=== PATIENT | female | born 1970 | race Caucasian/White ===

== ENCOUNTER 2020-07-12 19:28 | Emergency (ER) | payer OTHER | END 2020-07-12 20:18 | disposition admitted as inpatient to this hospital (09) | LOC: ER1 19:28 | DX: Z53.21 Procedure and treatment not carried out due to patient leaving prior to being seen by health care provider (principal) ==

== ENCOUNTER 2020-10-24 17:34 | Observation (INO) | payer OTHER ==
[~2020-10-24] VITALS: Ht 167.6 cm; Wt 100.2 kg
[~2020-10-24 17:34] MED LIST changes: -COMBIVENT RESPIM4 GM NEB; -IBU800 MG PO; -K-DUR TAB 20 M20 MEQ PO; -LASIX20 MG PO; -LISINOPRIL5 MG PO; -LOPRESSOR 25 MG25 MG PO; -NEURONTIN400 MG PO; -PAXIL30 MG PO; -PREDNISONE10 MG PO; -VENTOLIN HFA 66.7 GM INH; -ZESTORETIC 20-1 EAC1 PO
[2020-10-24 18:43] LABS: HEMOGLOBIN 14.3 gm/dl (12.3-15.3); RED BLOOD COUNT 4.74 M/UL (4.00-5.10)
[2020-10-24 19:05] LABS: BUN/CREATININE RATIO 22 (0-10)
[2020-10-25 03:31] LABS: HEMOGLOBIN 13.4 gm/dl (12.3-15.3); RED BLOOD COUNT 4.42 M/UL (4.00-5.10); WHITE BLOOD COUNT 9.7 K/UL (4.5-11.0)
[2020-10-25] MEDS ORDERED: PAXIL30 MG PO (09:10)
[2020-10-25] MEDS ORDERED: COMBIVENT RESPIM4 GM NEB (09:10)
[2020-10-25] MEDS ORDERED: PREDNISONE10 MG PO (09:13)
[2020-10-25] MEDS ORDERED: VENTOLIN HFA 66.7 GM INH (09:17)
[2020-10-25] MEDS ORDERED: IBU800 MG PO (09:18)
[2020-10-25] MEDS ORDERED: ZESTORETIC 20-1 EAC1 PO (09:18)
[2020-10-25] MEDS ORDERED: NEURONTIN400 MG PO (09:20)
[2020-10-26 03:07] LABS: HEMOGLOBIN 13.8 gm/dl (12.3-15.3); RED BLOOD COUNT 4.53 M/UL (4.00-5.10); WHITE BLOOD COUNT 9.1 K/UL (4.5-11.0)
[2020-10-26] MEDS ORDERED: LOPRESSOR 25 MG25 MG PO (17:03)
[2020-10-26] MEDS ORDERED: LISINOPRIL5 MG PO (17:03)
[2020-10-26] MEDS ORDERED: K-DUR TAB 20 M20 MEQ PO (17:03)
[2020-10-26] MEDS ORDERED: LASIX20 MG PO (17:03)
== END 2020-10-26 20:05 | disposition home or self-care (01) ==
LOC: ER1 17:34 → CDU 20:32 → PROG CARE 20:32
PROVIDERS: Emergency Medicine; Internal Medicine; Physician Assistant; ADMIT Internal Medicine
PROC: 4A023FZ Measurement of Cardiac Rhythm, Percutaneous Approach (ICD-10-PCS; principal; 2020-10-25)
PROC: 4A0234Z Measurement of Cardiac Electrical Activity, Percutaneous Approach (ICD-10-PCS; principal; 2020-10-25)
PROC: 02K83ZZ Map Conduction Mechanism, Percutaneous Approach (ICD-10-PCS; principal; 2020-10-25)
DX: I48.92 Unspecified atrial flutter (principal); I95.9 Hypotension, unspecified; I11.0 Hypertensive heart disease with heart failure; I50.21 Acute systolic (congestive) heart failure; N17.9 Acute kidney failure, unspecified; T50.905A Adverse effect of unspecified drugs, medicaments and biological substances, initial encounter; N14.2 Nephropathy induced by unspecified drug, medicament or biological substance; I42.0 Dilated cardiomyopathy; E87.6 Hypokalemia; G25.81 Restless legs syndrome; R94.5 Abnormal results of liver function studies; F17.210 Nicotine dependence, cigarettes, uncomplicated; I08.1 Rheumatic disorders of both mitral and tricuspid valves; E66.9 Obesity, unspecified; Z68.35 Body mass index [BMI] 35.0-35.9, adult; Z20.822 Contact with and (suspected) exposure to COVID-19; Z79.52 Long term (current) use of systemic steroids; Z79.899 Other long term (current) drug therapy
CPT/HCPCS: ECHO; 36415; 71045; 71046; 80048; 80053; 80061; 82550; 82553; 82962; 83735; 83874; 83880; 84439; 84443; 84484; 85025; 85379; 85610; 85730; 93005; 93306; 93609; 93620; 93621; 94640; 94664; 94760; 96374; 99152; 99153; 99285; C1730; C1733; C1766; G0378; J0153; J1644; J1650; J2250; J3010; J7030; J7040; Q9957; Q9967; U0002

== ENCOUNTER → 2020-10-24 | Outpatient (CLI) | payer OTHER ==
[~2020-10-24] MED LIST: COMBIVENT RESPIM4 GM NEB; DOXYCYCLINE HY100 MG PO; IBU800 MG PO; K-DUR TAB 20 M20 MEQ PO; LASIX20 MG PO; LISINOPRIL5 MG PO; LOPRESSOR 25 MG25 MG PO; NEURONTIN400 MG PO; PAXIL30 MG PO; PREDNISONE10 MG PO; VENTOLIN HFA 66.7 GM INH; ZESTORETIC 20-1 EAC1 PO
== END ==
LOC: KOH-I 10:50
DX: R06.02 Shortness of breath (principal)
CPT/HCPCS: 71046; Q9967

== ENCOUNTER 2020-11-26 08:41 | Inpatient (IN) | payer OTHER ==
[~2020-11-26] VITALS: Ht 167.6 cm; Wt 96.6 kg
[~2020-11-26 08:41] MED LIST changes: +BUSPIRONE HCL5 MG PO; +IBU800 MG PO; +K-DUR TAB 20 M20 MEQ PO; +LASIX20 MG PO; +LISINOPRIL5 MG PO; +LOPRESSOR 25 MG25 MG PO; +NEURONTIN400 MG PO; +PAXIL30 MG PO; +PREDNISONE10 MG PO; +VENTOLIN HFA 66.7 GM INH; +ZESTORETIC 20-1 EAC1 PO
[2020-11-26] MEDS ORDERED: IPRAT-ALBUT 0.5-3 ML NEB (09:10)
[2020-11-26 09:27] LABS: HEMOGLOBIN 14.8 gm/dl (12.3-15.3); RED BLOOD COUNT 4.61 M/UL (4.00-5.10); WHITE BLOOD COUNT 6.3 K/UL (4.5-11.0)
[2020-11-26] MEDS ORDERED: LISINOPRIL5 MG PO (11:24)
[2020-11-26] MEDS ORDERED: K-TAB ER20 MEQ PO (11:25)
[2020-11-26] MEDS ORDERED: BUMETANIDE1 MG PO (11:26)
[2020-11-27 03:12] LABS: HEMOGLOBIN 15.8 gm/dl (12.3-15.3); RED BLOOD COUNT 5.01 M/UL (4.00-5.10); WHITE BLOOD COUNT 7.7 K/UL (4.5-11.0)
[2020-11-28 02:37] LABS: HEMOGLOBIN 14.7 gm/dl (12.3-15.3); RED BLOOD COUNT 4.66 M/UL (4.00-5.10); WHITE BLOOD COUNT 5.8 K/UL (4.5-11.0)
[2020-11-28 02:55] LABS: BUN/CREATININE RATIO 23 (0-10)
[2020-11-29 03:08] LABS: HEMOGLOBIN 16.4 gm/dl (12.3-15.3); WHITE BLOOD COUNT 6.4 K/UL (4.5-11.0)
[2020-11-29 03:13] LABS: RED BLOOD COUNT 5.15 M/UL (4.00-5.10)
[2020-11-29 03:30] LABS: BUN/CREATININE RATIO 16 (0-10)
--- NOTE | 2020-11-29 16:44 | NUR ---
11/29/20 1650 PATIENT RETURNED FROM [employer]. HEART CATH "CLEAN" DIAGNOSTIC ONLY, TR BAND IN PLACE TO RIGHT WRIST WITH 13ML AIR. POSITIVE PULSES NOTED, CAP REFULL LESS THAN 3 SECONDS. EXTREM WARM TO TOUCH, DENIES PAIN/DISCOMFORT. DENIES NUMBNESS, TINGLING. PATIENT ALERT/ORIENTED, EDUCATED ON NOT USING RIGHT ARM/HAND UNTIL TR BAND REMOVED AND CLEARED FOR D/C. EXPLAINED RISKS OF BLEEDING ETC. PATIENT VERBALIZED UNDERSTANDING.
[2020-11-29] MEDS ORDERED: METOPROLOL SUC100 MG PO (16:53)
[2020-11-29] MEDS ORDERED: DIGOXIN125 MCG PO (16:53)
[2020-11-29] MEDS ORDERED: ASPIRIN EC81 MG PO (16:53)
[2020-11-29] MEDS ORDERED: ATORVASTATIN CA20 MG PO (16:53)
[2020-11-29] MEDS ORDERED: BUDESONIDE0.5 MG/2 M NEB (16:53)
[2020-11-29] MEDS ORDERED: ELIQUIS 5 MG TAB5 MG PO (16:53)
[2020-11-29] MEDS ORDERED: LASIX20 MG PO (16:56)
[2020-11-29] MEDS ORDERED: KLOR-CON 1010 MEQ PO (16:56)
[2020-11-29] MEDS ORDERED: ALDACTONE 25MG25 MG PO (16:56)
[2020-11-29] MEDS ORDERED: BUMETANIDE1 MG PO (20:11)
== END 2020-11-29 20:00 | disposition home or self-care (01) | DRG 286 ==
LOC: ER1 08:41 → CDU 10:34 → PROG CARE 10:34
PROVIDERS: Student in an Organized Health Care Education/Training Program; ADMIT Internal Medicine
PROC: B2111ZZ Fluoroscopy of Multiple Coronary Arteries using Low Osmolar Contrast (ICD-10-PCS; principal; 2020-11-29)
DX: I11.0 Hypertensive heart disease with heart failure (principal); I50.23 Acute on chronic systolic (congestive) heart failure; I48.19 Other persistent atrial fibrillation; I48.92 Unspecified atrial flutter; I42.0 Dilated cardiomyopathy; E87.6 Hypokalemia; Z20.822 Contact with and (suspected) exposure to COVID-19; F17.210 Nicotine dependence, cigarettes, uncomplicated; I34.0 Nonrheumatic mitral (valve) insufficiency; F41.9 Anxiety disorder, unspecified; J44.9 Chronic obstructive pulmonary disease, unspecified; F12.90 Cannabis use, unspecified, uncomplicated; Z82.49 Family history of ischemic heart disease and other diseases of the circulatory system; Z79.52 Long term (current) use of systemic steroids; Z79.01 Long term (current) use of anticoagulants; Z80.42 Family history of malignant neoplasm of prostate
CPT/HCPCS: 36415; 71045; 78452; 80053; 82550; 82553; 83735; 83874; 83880; 84132; 84439; 84443; 84484; 85025; 85027; 85610; 93005; 93017; 94640; 94760; 96372; 96374; 96375; 96376; 99152; 99153; 99285; A9502; C1769; C1894; G0378; J0360; J1160; J1644; J1650; J2250; J2785; J3010; Q9967; U0002

== ENCOUNTER → 2021-05-08 | Outpatient (CLI) | payer OTHER ==
[~2021-05-08] MED LIST changes: +ALDACTONE 25MG25 MG PO; +ASPIRIN EC81 MG PO; +ATORVASTATIN CA20 MG PO; +BUDESONIDE0.5 MG/2 M NEB; +BUMETANIDE1 MG PO; +DIGOXIN125 MCG PO; +ELIQUIS 5 MG TAB5 MG PO; +IPRAT-ALBUT 0.5-3 ML NEB; +K-TAB ER20 MEQ PO; +KLOR-CON 1010 MEQ PO; +METOPROLOL SUC100 MG PO
== END ==
LOC: HEART 5 15:00
DX: I42.9 Cardiomyopathy, unspecified (principal); I51.7 Cardiomegaly
CPT/HCPCS: 93306